=== PATIENT | male | born 1960 | race Caucasian/White ===

== ENCOUNTER 2023-11-05 09:16 | Emergency (ER) | payer OTHER ==
[~2023-11-05] VITALS: Ht 170.2 cm; Wt 77.1 kg
[2023-11-05] MEDS ORDERED: AMOX1TAB5 PO (11:15)
[2023-11-05] MEDS ORDERED: MOXIFLOXACIN3 ML OP (11:15)
[2023-11-05] MEDS ORDERED: TOBRAMYCIN-DEXAM5 ML OP (14:23)
== END 2023-11-05 11:26 | disposition home or self-care (01) ==
LOC: ER 09:17
DX: L03.011 Cellulitis of right finger (principal); H10.89 Other conjunctivitis